=== PATIENT | male | born 1970 | race Caucasian/White ===

== ENCOUNTER 2020-08-26 21:41 | Emergency (ER) | payer OTHER ==
[~2020-08-26] VITALS: Ht 188 cm; Wt 90.7 kg
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
[2020-08-26] MEDS ORDERED: ACETAMINOPHEN 325 MG TABLET ONE (22:15)
--- NOTE | 2020-08-26 22:15 | NUR ---
TECH AT BED SIDE FOR XRAY
[2020-08-26] MEDS: ACETAMINOPHEN 325 MG TABLET PO ONE (22:25)
[2020-08-26] MEDS ORDERED: ACET-73 PO (22:43)
--- NOTE | 2020-08-26 23:32 | NUR ---
Patient discharged to home in stable condition. Written and verbal after care instructions given. Patient verbalizes understanding of instruction.
[2020-08-26 23:33] VITALS: BP 133/80
== END 2020-08-26 23:33 | disposition home or self-care (01) ==
LOC: ER 21:44
DX: S50.311A Abrasion of right elbow, initial encounter (principal); M25.512 Pain in left shoulder; M25.511 Pain in right shoulder; R51.9 Headache, unspecified; F84.0 Autistic disorder; E78.5 Hyperlipidemia, unspecified; Z90.89 Acquired absence of other organs; V03.10XA Pedestrian on foot injured in collision with car, pick-up truck or van in traffic accident, initial encounter; Y93.89 Activity, other specified; Y92.488 Other paved roadways as the place of occurrence of the external cause; Y99.8 Other external cause status
CPT/HCPCS: 71045-TC; 73030-TC; 73590-TC; 73600-TC

== ENCOUNTER 2022-08-31 19:55 | Emergency (ER) | payer OTHER ==
[~2022-08-31] VITALS: Ht 188 cm; Wt 99.8 kg
[~2022-08-31 19:55] MED LIST: ACET-73 PO
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
[2022-08-31] MEDS ORDERED: IBUPROFEN 400 MG TABLET ONE (21:14)
--- NOTE | 2022-08-31 21:19 | NUR ---
US TECH AT PT'S BEDSIDE
[2022-08-31] MEDS ORDERED: IBUPROFEN 400 MG TABLET PO ONE (21:30)
--- NOTE | 2022-08-31 22:54 | NUR ---
Patient discharged to home in stable condition. Written and verbal after care instructions given. Patient verbalizes understanding of instruction. pt ambulatory with a steady gait
[2022-08-31 22:55] VITALS: BP 121/81
== END 2022-08-31 22:55 | disposition home or self-care (01) ==
LOC: ER 19:59
DX: M79.661 Pain in right lower leg (principal); E78.5 Hyperlipidemia, unspecified; Z90.89 Acquired absence of other organs; Z60.2 Problems related to living alone
CPT/HCPCS: 93971-TC